=== PATIENT | female | born 1955 | race Two or more races ===

== ENCOUNTER 2017-10-11 13:47 | Inpatient (IN) | payer OTHER ==
[~2017-10-11] VITALS: Ht 170.2 cm; Wt 71.2 kg
[2017-10-11] MEDS ORDERED: PRAVACHOL80 MG (14:22)
[2017-10-11] MEDS ORDERED: AVAPRO75 MG (14:22)
[2017-10-11] MEDS ORDERED: [UNRECOGNIZED DRUG - OTHER] (14:23)
[2017-10-11] MEDS ORDERED: SUSTIVA (14:23)
[2017-10-11] MEDS ORDERED: [UNRECOGNIZED DRUG - OTHER] (14:23)
[2017-10-23] MEDS ORDERED: INTEGRA PLUS C1 EACH PO (17:54)
[2017-10-23] MEDS ORDERED: TAMSULOSIN HCL0.4 MG PO (17:54)
== END 2017-10-23 19:39 | disposition home health service (06) | DRG 975 ==
LOC: ER 13:47 → SEC-K 10-12 13:45 → MEDI 10-12 13:45
PROC: BT43ZZZ Ultrasonography of Bilateral Kidneys (ICD-10-PCS; 2017-10-12)
PROC: 4A033R1 Measurement of Arterial Saturation, Peripheral, Percutaneous Approach (ICD-10-PCS; principal; 2017-10-13)
PROC: 4A12X4Z Monitoring of Cardiac Electrical Activity, External Approach (ICD-10-PCS; 2017-10-13)
PROC: BW25ZZZ Computerized Tomography (CT Scan) of Chest, Abdomen and Pelvis (ICD-10-PCS; 2017-10-14)
PROC: B246ZZZ Ultrasonography of Right and Left Heart (ICD-10-PCS; 2017-10-15)
PROC: 02HV33Z Insertion of Infusion Device into Superior Vena Cava, Percutaneous Approach (ICD-10-PCS; 2017-10-19)
PROC: B54NZZZ Ultrasonography of Left Upper Extremity Veins (ICD-10-PCS; 2017-10-21)
DX: B20 Human immunodeficiency virus [HIV] disease (principal); A41.51 Sepsis due to Escherichia coli [E. coli]; N39.0 Urinary tract infection, site not specified; N17.8 Other acute kidney failure; J90 Pleural effusion, not elsewhere classified; N13.2 Hydronephrosis with renal and ureteral calculous obstruction; E86.0 Dehydration; E87.5 Hyperkalemia; I10 Essential (primary) hypertension; N21.0 Calculus in bladder; K29.60 Other gastritis without bleeding

== ENCOUNTER 2017-11-09 12:20 | Outpatient (CLI) | payer OTHER ==
[~2017-11-09 12:20] MED LIST: AVAPRO75 MG; INTEGRA PLUS C1 EACH PO; PRAVACHOL80 MG; SUSTIVA; TAMSULOSIN HCL0.4 MG PO; [UNRECOGNIZED DRUG - OTHER]; [UNRECOGNIZED DRUG - OTHER]
== END 2017-11-09 12:23 | disposition home or self-care (01) ==
LOC: RAD 12:20
DX: N32.81 Overactive bladder (principal)

== ENCOUNTER 2020-04-28 08:10 | Outpatient (CLI) | payer OTHER | END 2020-04-28 08:24 | disposition home or self-care (01) | LOC: TOM 08:10 | PROVIDERS: ATTEND Specialist | DX: N20.0 Calculus of kidney (principal); R07.89 Other chest pain; N13.5 Crossing vessel and stricture of ureter without hydronephrosis ==